=== PATIENT | female | born 1955 | race Caucasian/White ===

== ENCOUNTER 2017-03-08 09:55 | Inpatient (IN) | payer OTHER ==
[~2017-03-08] VITALS: Ht 160 cm; Wt 102.5 kg
[~2017-03-08 09:55] MED LIST: ALBU90OI INH; ALBU90OI6 INH; AMLO5 PO; ASPI325 PO; ASPI81CH PO; CAFERGOT; CALCAVITD PO; CARI350 PO; CEFD300 PO; CYCL10; CYCL10 PO; CYPR4 PO; DEPLIN PO; DEXA4 PO; DIAZ2 PO; ENABLEX; ENABLEX PO; ERGO50000 PO; ESCI10; ESCI20; ESTR1; ESTR1 PO; ESTR2 PO; FERR325 PO; FEXO180; FEXO180 PO; FEXPSEER PO; FLAV100; FLUO10 PO; FROV2.5; Flexeril 10 mg10 MG PO; GUAI600T33; HYDACE10B PO; HYDACE5 PO; HYDMOR2 PO; HYDMOR4 PO; INNOPRAN; INNOPRAN PO; INNOPRAN XL; L-LYSINE500 MG PO; LEVFLO500; LEVSOD100 PO; LEVSOD50 PO; LEVSOD75 PO; LOPE2C PO; MAXALT; MAXALT PO; MAXALT SL; META800 PO; METO10 PO; METPRE4DP PO; Monodox100 MG PO; NAPR500 PO; NARA2.5; OLAN10 PO; OMEP20ER; OMEP20ER PO; OMEP40CA12 PO; ONDA8 PO; OXYACE5T PO; OXYB5; OXYC5 PO; PHENERGAN25 MG RC; PRED20 PO; PROCODE120 PO; PROM12.5S PR; PROM25 PO; PROM25S; PROM25S PR; PROMETHEGAN; PROP120ER PO; PROP80ER; RIZA; RIZA PO; ROPI.25 PO; RXHYDMOR2 PO; SANCTURA; TRAACE; TRAM50 PO; TRIA55OI; TRIAOIA; VENL150ER PO; VENL75 PO; VENL75ER PO; VICODIN 5-3001 EACH PO
[2017-03-08 11:46] LABS: Hematocrit 33.1 % (33.0-51.0); Hemoglobin 11.2 g/dL (11.5-16.0); Mean Corpuscular HGB 29.9 pg (26.0-34.0); Mean Corpuscular HGB Conc 33.8 g/dL (31.5-36.5); Platelet Count 164 K/mm3 (150-400); RDW Coefficient Variation 13.9 % (11.7-14.2); RDW Standard Deviation 43.4 fL (35.1-46.3); Red Blood Cell Count 3.75 M/mm3 (3.80-5.20)
[2017-03-08 11:49] LABS: Mean Corpuscular Volume 88 fL (80-100)
[2017-03-08 11:51] LABS: Alanine Aminotransfer (ALT/SGP 40 U/L (12-78); Albumin, Blood 3.1 g/dL (3.4-5.0); Albumin/Globulin Ratio 0.9 (0.8-1.8); Alk Phos 69 U/L (50-136); Anion Gap 10 mmol/L (6-16); Aspartate Aminotrans (AST/SGOT 23 U/L (12-37); Blood Urea Nitrogen 18 mg/dL (8-24); CO2, Blood 27 mmol/L (21-32); Calcium, Blood 8.2 mg/dL (8.5-10.1); Chloride, Blood 100 mmol/L (98-108); Creatinine, Blood 0.95 mg/dL (0.40-1.00); Globulin, Blood 3.6 g/dL (2.2-4.0); Glomerular Filtration Rate >60 (60-); Glucose, Blood 105 mg/dL (70-99); Magnesium, Blood 1.3 mg/dL (1.6-2.4); Sodium, Blood 137 mmol/L (136-145); Total Protein, Blood 6.7 g/dL (6.4-8.2)
[2017-03-08 11:52] LABS: White Blood Cell Count 0.08 K/mm3 (4.00-11.30)
[2017-03-08] MEDS ORDERED: Prilosec Otc20 MG PO (12:27)
[2017-03-08] MEDS ORDERED: LOPE2C PO (12:28)
[2017-03-08] MEDS ORDERED: AMLO5 PO (12:28)
[2017-03-08] MEDS ORDERED: HYDMOR2 PO (12:32)
[2017-03-08 12:40] LABS: BASOPHILS PERCENT MAN 0 % (0-2); EOSINOPHILS PERCENT MAN 0 % (0-6); LYMPHOCYTES ABSOLUTE MAN 0.06 K/mm3 (0.84-5.20); LYMPHOCYTES PERCENT MAN 80 % (21-46); MONOCYTES ABSOLUTE MAN 0.01 K/mm3 (0.16-1.47); MONOCYTES PERCENT MAN 20 % (4-13); TOTAL CELLS COUNTED 10
[2017-03-09] MEDS ORDERED: LORA1 PO (00:42)
[2017-03-09 05:56] LABS: Hematocrit 43.6 % (33.0-51.0); Hemoglobin 14.4 g/dL (11.5-16.0); Mean Corpuscular HGB 29.9 pg (26.0-34.0); Mean Platelet Volume 10.3 fL (9.1-12.4); NRBC ABSOLUTE 0.25 K/mm3 (0.00-0.02); NRBC Auto 172.9 /100 WBC (0.0-0.2); Platelet Count 86 K/mm3 (150-400); RDW Coefficient Variation 14.2 % (11.7-14.2); RDW Standard Deviation 45.5 fL (35.1-46.3); Red Blood Cell Count 4.81 M/mm3 (3.80-5.20)
[2017-03-09 06:03] LABS: Mean Corpuscular Volume 91 fL (80-100)
[2017-03-09 06:05] LABS: White Blood Cell Count 0.15 K/mm3 (4.00-11.30)
[2017-03-09 06:14] LABS: Alanine Aminotransfer (ALT/SGP 41 U/L (12-78); Albumin, Blood 2.4 g/dL (3.4-5.0); Albumin/Globulin Ratio 0.8 (0.8-1.8); Alk Phos 68 U/L (50-136); Anion Gap 7 mmol/L (6-16); Aspartate Aminotrans (AST/SGOT 23 U/L (12-37); Bilirubin, Total 0.6 mg/dL (0.1-1.0); Blood Urea Nitrogen 11 mg/dL (8-24); Bun/Creatinine Ratio 11.1 (12.0-20.0); CO2, Blood 26 mmol/L (21-32); Calcium, Blood 7.3 mg/dL (8.5-10.1); Chloride, Blood 105 mmol/L (98-108); Creatinine, Blood 0.99 mg/dL (0.40-1.00); Glomerular Filtration Rate >60 (60-); Glucose, Blood 90 mg/dL (70-99); Potassium, Blood 3.4 mmol/L (3.5-5.5); Sodium, Blood 138 mmol/L (136-145); Total Protein, Blood 5.4 g/dL (6.4-8.2)
[2017-03-09 06:16] LABS: BASOPHILS PERCENT MAN 0 % (0-2); EOSINOPHILS PERCENT MAN 0 % (0-6); LYMPHOCYTES ABSOLUTE MAN 0.07 K/mm3 (0.84-5.20); LYMPHOCYTES PERCENT MAN 53 % (21-46); MONOCYTES ABSOLUTE MAN 0.06 K/mm3 (0.16-1.47); MONOCYTES PERCENT MAN 40 % (4-13); NEUTROPHILS ABSOLUTE MAN 0.01 K/mm3 (1.96-9.15); SEG NEUTROPHILS PERCENT MAN 7 % (41-73); TOTAL CELLS COUNTED 15
[2017-03-10 10:28] LABS: Hematocrit 28.5 % (33.0-51.0); Hemoglobin 9.4 g/dL (11.5-16.0); Mean Corpuscular HGB 29.9 pg (26.0-34.0); Mean Corpuscular Volume 91 fL (80-100); Mean Platelet Volume 9.5 fL (9.1-12.4); Platelet Count 121 K/mm3 (150-400); RDW Coefficient Variation 14.1 % (11.7-14.2); RDW Standard Deviation 45.2 fL (35.1-46.3); Red Blood Cell Count 3.14 M/mm3 (3.80-5.20)
[2017-03-10 10:39] LABS: White Blood Cell Count 0.93 K/mm3 (4.00-11.30)
[2017-03-10 10:50] LABS: Alanine Aminotransfer (ALT/SGP 33 U/L (12-78); Albumin, Blood 2.2 g/dL (3.4-5.0); Albumin/Globulin Ratio 0.7 (0.8-1.8); Alk Phos 65 U/L (50-136); Anion Gap 9 mmol/L (6-16); Aspartate Aminotrans (AST/SGOT 19 U/L (12-37); Bilirubin, Total 0.5 mg/dL (0.1-1.0); Blood Urea Nitrogen 7 mg/dL (8-24); Bun/Creatinine Ratio 7.9 (12.0-20.0); CO2, Blood 25 mmol/L (21-32); Calcium, Blood 7.7 mg/dL (8.5-10.1); Chloride, Blood 105 mmol/L (98-108); Creatinine, Blood 0.89 mg/dL (0.40-1.00); Glomerular Filtration Rate >60 (60-); Glucose, Blood 109 mg/dL (70-99); Potassium, Blood 3.2 mmol/L (3.5-5.5); Sodium, Blood 139 mmol/L (136-145); Total Protein, Blood 5.2 g/dL (6.4-8.2)
[2017-03-10 11:17] LABS: BAND PERCENT MAN 4 % (0-8); BASOPHILS ABSOLUTE MAN 0.01 K/mm3 (0.00-0.23); BASOPHILS PERCENT MAN 2 % (0-2); EOSINOPHILS PERCENT MAN 0 % (0-6); LYMPHOCYTES PERCENT MAN 44 % (21-46); METAMYELOCYTE ABSOLUTE MAN 0.03 K/mm3 (0.00-0.00); METAMYELOCYTE PERCENT MAN 4 % (0-0); MONOCYTES ABSOLUTE MAN 0.24 K/mm3 (0.16-1.47); MONOCYTES PERCENT MAN 26 % (4-13); MYELOCYTE ABSOLUTE MAN 0.01 K/mm3 (0.00-0.00); MYELOCYTE PERCENT MAN 2 % (0-0); SEG NEUTROPHILS PERCENT MAN 18 % (41-73); TOTAL CELLS COUNTED 50
[2017-03-11 05:44] LABS: Hematocrit 28.3 % (33.0-51.0); Hemoglobin 9.4 g/dL (11.5-16.0); Mean Corpuscular HGB 29.9 pg (26.0-34.0); Mean Corpuscular HGB Conc 33.2 g/dL (31.5-36.5); Mean Corpuscular Volume 90 fL (80-100); Mean Platelet Volume 9.6 fL (9.1-12.4); Platelet Count 126 K/mm3 (150-400); RDW Coefficient Variation 14.2 % (11.7-14.2); RDW Standard Deviation 45.4 fL (35.1-46.3); Red Blood Cell Count 3.14 M/mm3 (3.80-5.20); White Blood Cell Count 2.13 K/mm3 (4.00-11.30)
[2017-03-11 06:03] LABS: Alanine Aminotransfer (ALT/SGP 29 U/L (12-78); Albumin, Blood 2.4 g/dL (3.4-5.0); Albumin/Globulin Ratio 0.8 (0.8-1.8); Alk Phos 63 U/L (50-136); Anion Gap 8 mmol/L (6-16); Aspartate Aminotrans (AST/SGOT 14 U/L (12-37); Bilirubin, Total 0.5 mg/dL (0.1-1.0); Blood Urea Nitrogen 6 mg/dL (8-24); Bun/Creatinine Ratio 7.3 (12.0-20.0); CO2, Blood 29 mmol/L (21-32); Calcium, Blood 8.2 mg/dL (8.5-10.1); Chloride, Blood 102 mmol/L (98-108); Creatinine, Blood 0.82 mg/dL (0.40-1.00); Globulin, Blood 3.2 g/dL (2.2-4.0); Glomerular Filtration Rate >60 (60-); Glucose, Blood 97 mg/dL (70-99); Sodium, Blood 139 mmol/L (136-145); Total Protein, Blood 5.6 g/dL (6.4-8.2)
[2017-03-11 06:38] LABS: BAND PERCENT MAN 8 % (0-8); BASOPHILS PERCENT MAN 0 % (0-2); EOSINOPHILS ABSOLUTE MAN 0.02 K/mm3 (0.00-0.68); EOSINOPHILS PERCENT MAN 1 % (0-6); LYMPHOCYTES ABSOLUTE MAN 0.87 K/mm3 (0.84-5.20); LYMPHOCYTES PERCENT MAN 41 % (21-46); METAMYELOCYTE ABSOLUTE MAN 0.02 K/mm3 (0.00-0.00); METAMYELOCYTE PERCENT MAN 1 % (0-0); MONOCYTES PERCENT MAN 19 % (4-13); MYELOCYTE ABSOLUTE MAN 0.06 K/mm3 (0.00-0.00); MYELOCYTE PERCENT MAN 3 % (0-0); NEUTROPHILS ABSOLUTE MAN 0.74 K/mm3 (1.96-9.15); SEG NEUTROPHILS PERCENT MAN 27 % (41-73); TOTAL CELLS COUNTED 100
[2017-03-11] MEDS ORDERED: AMOX TR-K250 MG/5 M PO (12:41)
[2018-02-09] MEDS ORDERED: ANASTROZOLE5 GM (08:40)
[2018-02-09] MEDS ORDERED: Zantac150 MG PO (08:40)
[2018-02-09] MEDS ORDERED: DULO30 PO (08:40)
[2018-02-09] MEDS ORDERED: LISI20 PO (12:08)
[2018-02-09] MEDS ORDERED: L-LYSINE600 MG PO (12:09)
[2018-02-09] MEDS ORDERED: TURMERIC 500 M1 EACH PO (12:10)
[2018-02-09] MEDS ORDERED: NATURAL LUTEIN20 MG PO (12:10)
[2018-02-09] MEDS ORDERED: CHOL10002 PO (12:11)
[2018-02-09] MEDS ORDERED: CYAN500 PO (12:14)
[2018-02-09] MEDS ORDERED: Hair, Skin & N1 EACH PO (12:15)
[2018-02-09] MEDS ORDERED: MAGNESIUM250 MG PO (12:15)
== END 2017-03-11 13:14 | disposition home or self-care (01) | DRG 872 ==
LOC: ER 09:55 → MEDS 13:51 → ENPENDDIS 03-11 12:55 → MEDS 03-11 13:14
PROVIDERS: Internal Medicine; Physician Assistant
DX: A41.9 Sepsis, unspecified organism (principal); D69.59 Other secondary thrombocytopenia; C50.412 Malignant neoplasm of upper-outer quadrant of left female breast; E83.42 Hypomagnesemia; E86.0 Dehydration; E03.9 Hypothyroidism, unspecified; E87.6 Hypokalemia; K21.9 Gastro-esophageal reflux disease without esophagitis; F32.9 Major depressive disorder, single episode, unspecified; M79.7 Fibromyalgia; T45.1X5A Adverse effect of antineoplastic and immunosuppressive drugs, initial encounter; Z92.21 Personal history of antineoplastic chemotherapy; Z17.0 Estrogen receptor positive status [ER+]; Z88.1 Allergy status to other antibiotic agents; Z88.5 Allergy status to narcotic agent; Z88.8 Allergy status to other drugs, medicaments and biological substances; Z79.1 Long term (current) use of non-steroidal anti-inflammatories (NSAID); Z79.899 Other long term (current) drug therapy
CPT/HCPCS: 36415; 71046; 80053; 83605; 83690; 83735; 85025; 87015; 87040; 87045; 87046; 87205; 87493; 87899; 93005; 93010; 96361; 96365; 96367; 96368; 96375; 99285; C9113; J1642; J1644; J2001; J2405; J2543; J2550; J2765; J3370; J3475; J3480; J7030; J7050

== ENCOUNTER 2017-03-12 15:08 | Day surgery (SDC) | payer OTHER ==
[~2017-03-12 15:08] MED LIST changes: +AMOX TR-K250 MG/5 M PO; +LORA1 PO; +Prilosec Otc20 MG PO
[2017-03-12 16:17] LABS: Hematocrit 30.4 % (33.0-51.0); Hemoglobin 9.9 g/dL (11.5-16.0); Mean Corpuscular HGB 29.8 pg (26.0-34.0); Mean Corpuscular HGB Conc 32.6 g/dL (31.5-36.5); Mean Corpuscular Volume 92 fL (80-100); Platelet Count 133 K/mm3 (150-400); RDW Coefficient Variation 14.3 % (11.7-14.2); Red Blood Cell Count 3.32 M/mm3 (3.80-5.20); White Blood Cell Count 7.36 K/mm3 (4.00-11.30)
[2017-03-12 19:30] LABS: BASOPHILS PERCENT MAN 0 % (0-2); EOSINOPHILS PERCENT MAN 0 % (0-6); LYMPHOCYTES ABSOLUTE MAN 1.76 K/mm3 (0.84-5.20); LYMPHOCYTES PERCENT MAN 24 % (21-46); METAMYELOCYTE ABSOLUTE MAN 0.07 K/mm3 (0.00-0.00); METAMYELOCYTE PERCENT MAN 1 % (0-0); MONOCYTES ABSOLUTE MAN 1.03 K/mm3 (0.16-1.47); MONOCYTES PERCENT MAN 14 % (4-13); MYELOCYTE ABSOLUTE MAN 0.07 K/mm3 (0.00-0.00); MYELOCYTE PERCENT MAN 1 % (0-0); NEUTROPHILS ABSOLUTE MAN 4.41 K/mm3 (1.96-9.15); SEG NEUTROPHILS PERCENT MAN 60 % (41-73); TOTAL CELLS COUNTED 100
[2018-02-09] MEDS ORDERED: ANASTROZOLE5 GM (08:40)
[2018-02-09] MEDS ORDERED: DULO30 PO (08:40)
[2018-02-09] MEDS ORDERED: Zantac150 MG PO (08:40)
[2018-02-09] MEDS ORDERED: LISI20 PO (12:08)
[2018-02-09] MEDS ORDERED: L-LYSINE600 MG PO (12:09)
[2018-02-09] MEDS ORDERED: TURMERIC 500 M1 EACH PO (12:10)
[2018-02-09] MEDS ORDERED: NATURAL LUTEIN20 MG PO (12:10)
[2018-02-09] MEDS ORDERED: CHOL10002 PO (12:11)
[2018-02-09] MEDS ORDERED: CYAN500 PO (12:14)
[2018-02-09] MEDS ORDERED: Hair, Skin & N1 EACH PO (12:15)
[2018-02-09] MEDS ORDERED: MAGNESIUM250 MG PO (12:15)
== END 2017-03-12 15:45 | disposition home or self-care (01) ==
LOC: ATC 15:08
PROVIDERS: Nurse Practitioner Family
DX: C50.812 Malignant neoplasm of overlapping sites of left female breast (principal); Z17.0 Estrogen receptor positive status [ER+]
CPT/HCPCS: 36591; 85025; J1642

== ENCOUNTER 2017-03-16 10:14 | Day surgery (SDC) | payer OTHER ==
[2017-03-16 11:07] LABS: BASOPHILS ABSOLUTE AUTO 0.01 K/mm3 (0.00-0.23); BASOPHILS PERCENT AUTO 0 % (0-2); EOSINOPHILS PERCENT AUTO 0 % (0-6); Hematocrit 31.2 % (33.0-51.0); Hemoglobin 10.3 g/dL (11.5-16.0); IMMATURE GRAN ABSOLUTE AUTO 0.27 K/mm3 (0.00-0.10); IMMATURE GRAN PERCENT AUTO 5 % (0-1); LYMPHOCYTES ABSOLUTE AUTO 1.44 K/mm3 (0.84-5.20); LYMPHOCYTES PERCENT AUTO 25 % (21-46); MONOCYTES ABSOLUTE AUTO 0.58 K/mm3 (0.16-1.47); MONOCYTES PERCENT AUTO 10 % (4-13); Mean Corpuscular HGB 29.9 pg (26.0-34.0); Mean Corpuscular Volume 91 fL (80-100); Mean Platelet Volume 10.7 fL (9.1-12.4); NEUTROPHILS ABSOLUTE AUTO 3.49 K/mm3 (1.96-9.15); NEUTROPHILS PERCENT AUTO 60 % (41-73); RDW Coefficient Variation 14.1 % (11.7-14.2); RDW Standard Deviation 44.8 fL (35.1-46.3); Red Blood Cell Count 3.44 M/mm3 (3.80-5.20); White Blood Cell Count 5.79 K/mm3 (4.00-11.30)
[2017-03-16 11:10] LABS: Platelet Count 50 K/mm3 (150-400)
[2017-03-16 11:32] LABS: Alanine Aminotransfer (ALT/SGP 46 U/L (12-78); Albumin/Globulin Ratio 0.9 (0.8-1.8); Alk Phos 76 U/L (50-136); Anion Gap 10 mmol/L (6-16); Aspartate Aminotrans (AST/SGOT 33 U/L (12-37); Bilirubin, Total 0.3 mg/dL (0.1-1.0); Blood Urea Nitrogen 8 mg/dL (8-24); Bun/Creatinine Ratio 8.8 (12.0-20.0); CO2, Blood 28 mmol/L (21-32); Calcium, Blood 6.6 mg/dL (8.5-10.1); Chloride, Blood 102 mmol/L (98-108); Globulin, Blood 3.3 g/dL (2.2-4.0); Glomerular Filtration Rate >60 (60-); Glucose, Blood 101 mg/dL (70-99); Potassium, Blood 3.4 mmol/L (3.5-5.5); Sodium, Blood 140 mmol/L (136-145); Total Protein, Blood 6.3 g/dL (6.4-8.2)
[2018-02-09] MEDS ORDERED: Zantac150 MG PO (08:40)
[2018-02-09] MEDS ORDERED: DULO30 PO (08:40)
[2018-02-09] MEDS ORDERED: ANASTROZOLE5 GM (08:40)
[2018-02-09] MEDS ORDERED: LISI20 PO (12:08)
[2018-02-09] MEDS ORDERED: L-LYSINE600 MG PO (12:09)
[2018-02-09] MEDS ORDERED: NATURAL LUTEIN20 MG PO (12:10)
[2018-02-09] MEDS ORDERED: TURMERIC 500 M1 EACH PO (12:10)
[2018-02-09] MEDS ORDERED: CHOL10002 PO (12:11)
[2018-02-09] MEDS ORDERED: CYAN500 PO (12:14)
[2018-02-09] MEDS ORDERED: Hair, Skin & N1 EACH PO (12:15)
[2018-02-09] MEDS ORDERED: MAGNESIUM250 MG PO (12:15)
== END 2017-03-16 10:53 | disposition home or self-care (01) ==
LOC: ATC 10:14
PROVIDERS: Internal Medicine Hematology & Oncology
DX: C50.812 Malignant neoplasm of overlapping sites of left female breast (principal); Z17.0 Estrogen receptor positive status [ER+]; E03.9 Hypothyroidism, unspecified; F32.9 Major depressive disorder, single episode, unspecified; K21.9 Gastro-esophageal reflux disease without esophagitis
CPT/HCPCS: 80053; 85025; 96523; J1642

== ENCOUNTER 2017-03-19 11:47 | Day surgery (SDC) | payer OTHER ==
[2017-03-19 14:49] LABS: BASOPHILS ABSOLUTE AUTO 0.01 K/mm3 (0.00-0.23); BASOPHILS PERCENT AUTO 0 % (0-2); EOSINOPHILS PERCENT AUTO 0 % (0-6); Hematocrit 31.2 % (33.0-51.0); Hemoglobin 10.3 g/dL (11.5-16.0); IMMATURE GRAN ABSOLUTE AUTO 0.06 K/mm3 (0.00-0.10); IMMATURE GRAN PERCENT AUTO 1 % (0-1); LYMPHOCYTES PERCENT AUTO 26 % (21-46); MONOCYTES PERCENT AUTO 7 % (4-13); Mean Corpuscular HGB 29.9 pg (26.0-34.0); Mean Corpuscular Volume 90 fL (80-100); Mean Platelet Volume 10.4 fL (9.1-12.4); NEUTROPHILS ABSOLUTE AUTO 3.84 K/mm3 (1.96-9.15); NEUTROPHILS PERCENT AUTO 66 % (41-73); RDW Coefficient Variation 13.9 % (11.7-14.2); RDW Standard Deviation 44.5 fL (35.1-46.3); Red Blood Cell Count 3.45 M/mm3 (3.80-5.20); White Blood Cell Count 5.81 K/mm3 (4.00-11.30)
[2017-03-19 15:02] LABS: Alanine Aminotransfer (ALT/SGP 47 U/L (12-78); Albumin, Blood 3.1 g/dL (3.4-5.0); Albumin/Globulin Ratio 0.9 (0.8-1.8); Alk Phos 76 U/L (50-136); Anion Gap 11 mmol/L (6-16); Aspartate Aminotrans (AST/SGOT 37 U/L (12-37); Bilirubin, Total 0.6 mg/dL (0.1-1.0); Blood Urea Nitrogen 9 mg/dL (8-24); Bun/Creatinine Ratio 9.7 (12.0-20.0); CO2, Blood 28 mmol/L (21-32); Calcium, Blood 6.4 mg/dL (8.5-10.1); Chloride, Blood 102 mmol/L (98-108); Creatinine, Blood 0.93 mg/dL (0.40-1.00); Globulin, Blood 3.4 g/dL (2.2-4.0); Glomerular Filtration Rate >60 (60-); Glucose, Blood 89 mg/dL (70-99); Potassium, Blood 3.2 mmol/L (3.5-5.5); Sodium, Blood 141 mmol/L (136-145); Total Protein, Blood 6.5 g/dL (6.4-8.2)
[2017-03-19 15:32] LABS: Platelet Count 25 K/mm3 (150-400)
[2018-02-09] MEDS ORDERED: Zantac150 MG PO (08:40)
[2018-02-09] MEDS ORDERED: ANASTROZOLE5 GM (08:40)
[2018-02-09] MEDS ORDERED: DULO30 PO (08:40)
[2018-02-09] MEDS ORDERED: LISI20 PO (12:08)
[2018-02-09] MEDS ORDERED: L-LYSINE600 MG PO (12:09)
[2018-02-09] MEDS ORDERED: NATURAL LUTEIN20 MG PO (12:10)
[2018-02-09] MEDS ORDERED: TURMERIC 500 M1 EACH PO (12:10)
[2018-02-09] MEDS ORDERED: CHOL10002 PO (12:11)
[2018-02-09] MEDS ORDERED: CYAN500 PO (12:14)
[2018-02-09] MEDS ORDERED: Hair, Skin & N1 EACH PO (12:15)
[2018-02-09] MEDS ORDERED: MAGNESIUM250 MG PO (12:15)
== END 2017-03-19 15:32 | disposition home or self-care (01) ==
LOC: ATC 11:47
PROVIDERS: Internal Medicine Hematology & Oncology
DX: C50.812 Malignant neoplasm of overlapping sites of left female breast (principal); R11.2 Nausea with vomiting, unspecified; Z95.828 Presence of other vascular implants and grafts
CPT/HCPCS: 80053; 85025; 96361; 96374; J1642; J2405; J7030

== ENCOUNTER → 2017-03-23 | Outpatient (CLI) | payer OTHER ==
[~2017-03-23] MED LIST changes: +ANASTROZOLE5 GM; +CHOL10002 PO; +CYAN500 PO; +DULO30 PO; +Hair, Skin & N1 EACH PO; +L-LYSINE600 MG PO; +LISI20 PO; +MAGNESIUM250 MG PO; +NATURAL LUTEIN20 MG PO; +TURMERIC 500 M1 EACH PO; +Zantac150 MG PO
[2017-03-23 15:03] LABS: BASOPHILS PERCENT AUTO 0 % (0-2); EOSINOPHILS PERCENT AUTO 0 % (0-6); Hematocrit 29.8 % (33.0-51.0); Hemoglobin 9.9 g/dL (11.5-16.0); IMMATURE GRAN ABSOLUTE AUTO 0.02 K/mm3 (0.00-0.10); IMMATURE GRAN PERCENT AUTO 0 % (0-1); LYMPHOCYTES ABSOLUTE AUTO 1.52 K/mm3 (0.84-5.20); LYMPHOCYTES PERCENT AUTO 29 % (21-46); MONOCYTES ABSOLUTE AUTO 0.55 K/mm3 (0.16-1.47); MONOCYTES PERCENT AUTO 11 % (4-13); Mean Corpuscular HGB 30.2 pg (26.0-34.0); Mean Corpuscular HGB Conc 33.2 g/dL (31.5-36.5); Mean Corpuscular Volume 91 fL (80-100); Mean Platelet Volume 11.7 fL (9.1-12.4); NEUTROPHILS ABSOLUTE AUTO 3.16 K/mm3 (1.96-9.15); NEUTROPHILS PERCENT AUTO 60 % (41-73); RDW Coefficient Variation 14.9 % (11.7-14.2); RDW Standard Deviation 45.2 fL (35.1-46.3); Red Blood Cell Count 3.28 M/mm3 (3.80-5.20); White Blood Cell Count 5.25 K/mm3 (4.00-11.30)
[2017-03-23 15:07] LABS: Platelet Count 38 K/mm3 (150-400)
[2017-03-23 15:13] LABS: Alanine Aminotransfer (ALT/SGP 38 U/L (12-78); Albumin, Blood 3.2 g/dL (3.4-5.0); Alk Phos 72 U/L (50-136); Anion Gap 9 mmol/L (6-16); Aspartate Aminotrans (AST/SGOT 25 U/L (12-37); Bilirubin, Total 0.4 mg/dL (0.1-1.0); Blood Urea Nitrogen 7 mg/dL (8-24); Bun/Creatinine Ratio 7.3 (12.0-20.0); CO2, Blood 30 mmol/L (21-32); Calcium, Blood 6.4 mg/dL (8.5-10.1); Chloride, Blood 100 mmol/L (98-108); Creatinine, Blood 0.95 mg/dL (0.40-1.00); Globulin, Blood 3.1 g/dL (2.2-4.0); Glomerular Filtration Rate >60 (60-); Glucose, Blood 93 mg/dL (70-99); Potassium, Blood 3.2 mmol/L (3.5-5.5); Sodium, Blood 139 mmol/L (136-145); Total Protein, Blood 6.3 g/dL (6.4-8.2)
== END ==
LOC: LAB SHORT 14:33
PROVIDERS: Internal Medicine Hematology & Oncology
DX: C50.812 Malignant neoplasm of overlapping sites of left female breast (principal)
CPT/HCPCS: 80053; 85025

== ENCOUNTER → 2017-03-29 | Outpatient (CLI) | payer OTHER ==
[2017-03-29 14:56] LABS: Anion Gap 7 mmol/L (6-16); Blood Urea Nitrogen 5 mg/dL (8-24); Bun/Creatinine Ratio 6.1 (12.0-20.0); CO2, Blood 32 mmol/L (21-32); Calcium, Blood 6.2 mg/dL (8.5-10.1); Chloride, Blood 103 mmol/L (98-108); Creatinine, Blood 0.83 mg/dL (0.40-1.00); Glomerular Filtration Rate >60 (60-); Glucose, Blood 104 mg/dL (70-99); Potassium, Blood 2.9 mmol/L (3.5-5.5); Sodium, Blood 142 mmol/L (136-145)
== END ==
LOC: LAB 14:07
PROVIDERS: Internal Medicine Hematology & Oncology
DX: C50.812 Malignant neoplasm of overlapping sites of left female breast (principal)
CPT/HCPCS: 80048

== ENCOUNTER → 2017-10-27 | Outpatient (CLI) | payer OTHER ==
[~2017-10-27] MED LIST changes: -ANASTROZOLE5 GM; -CHOL10002 PO; -CYAN500 PO; -DULO30 PO; -Hair, Skin & N1 EACH PO; -L-LYSINE600 MG PO; -LISI20 PO; -MAGNESIUM250 MG PO; -NATURAL LUTEIN20 MG PO; -TURMERIC 500 M1 EACH PO; -Zantac150 MG PO
== END ==
LOC: LAB SHORT 19:02 → LAB 19:02
PROVIDERS: Nurse Practitioner Family
DX: Z01.419 Encounter for gynecological examination (general) (routine) without abnormal findings (principal)
CPT/HCPCS: G0145

== ENCOUNTER 2018-07-25 07:40 | Emergency (ER) | payer MEDICARE, OTHER ==
[~2018-07-25] VITALS: Ht 160 cm; Wt 99.8 kg
[~2018-07-25 07:40] MED LIST changes: +ANASTROZOLE5 GM; +CHOL10002 PO; +CYAN500 PO; +DULO30 PO; +Hair, Skin & N1 EACH PO; +L-LYSINE600 MG PO; +LISI20 PO; +MAGNESIUM250 MG PO; +NATURAL LUTEIN20 MG PO; +TURMERIC 500 M1 EACH PO; +Zantac150 MG PO
[2018-07-25] MEDS ORDERED: PRED10 PO (08:14)
[2018-07-25] MEDS ORDERED: Voltaren100 GM TOP (08:14)
[2018-07-25] MEDS ORDERED: HYDR1TAB94 PO (08:14)
== END 2018-07-25 08:34 | disposition home or self-care (01) ==
LOC: ER 07:40
DX: M77.11 Lateral epicondylitis, right elbow (principal); M77.9 Enthesopathy, unspecified; Z88.5 Allergy status to narcotic agent; Z88.8 Allergy status to other drugs, medicaments and biological substances; Z88.1 Allergy status to other antibiotic agents; Z79.899 Other long term (current) drug therapy; Z79.52 Long term (current) use of systemic steroids; Z85.3 Personal history of malignant neoplasm of breast
CPT/HCPCS: 99283

== ENCOUNTER → 2019-02-28 | Outpatient (CLI) | payer MEDICARE, OTHER ==
[~2019-02-28] MED LIST changes: +HYDR1TAB94 PO; +PRED10 PO; +Voltaren100 GM TOP
[2019-02-28 18:08] LABS: Campylobacter Sp Not Detected (NOT DETECT)
[2019-02-28 18:09] LABS: Adenovirus F 40/41 Not Detected (NOT DETECT); Astrovirus Not Detected (NOT DETECT); Cryptosporidium Not Detected (NOT DETECT); Cyclospora Cayetanensis Not Detected (NOT DETECT); E. Coli O157 Not Detected (NOT DETECT); Entamoeba Histolytica Not Detected (NOT DETECT); Enteroaggregative E. coli-EAEC Not Detected (NOT DETECT); Enteropathogenic E. coli-EPEC Not Detected (NOT DETECT); Enterotoxigenic E. coli-ETEC Not Detected (NOT DETECT); Giardia Lamblia Not Detected (NOT DETECT); Norovirus GI/GII Not Detected (NOT DETECT); Plesiomonas Shigelloides Not Detected (NOT DETECT); Rotavirus A Not Detected (NOT DETECT); Salmonella Sp Not Detected (NOT DETECT); Sapovirus Not Detected (NOT DETECT); Shiga Toxin-prod E. coli-STEC Not Detected (NOT DETECT); Shigella/Enteroin E. coli-EIEC Not Detected (NOT DETECT); Vibrio Cholerae Not Detected (NOT DETECT); Vibrio Sp Not Detected (NOT DETECT); Yersinia Enterocolitica Not Detected (NOT DETECT)
== END ==
LOC: LAB EV 02-27 10:30
PROVIDERS: Nurse Practitioner Family
DX: A06.1 Chronic intestinal amebiasis (principal)
CPT/HCPCS: 0097U

== ENCOUNTER → 2022-06-18 | Outpatient (CLI) | payer OTHER | END | disposition home or self-care (01) | LOC: LAB 09:30 → LAB SHORT 09:30 | DX: K21.00 Gastro-esophageal reflux disease with esophagitis, without bleeding (principal); K58.0 Irritable bowel syndrome with diarrhea; R42 Dizziness and giddiness | CPT/HCPCS: 83993 ==

== ENCOUNTER 2023-02-02 11:38 | Emergency (ER) | payer OTHER ==
[~2023-02-02] VITALS: Ht 160 cm; Wt 108.0 kg
[2023-02-02] MEDS ORDERED: LOSA25 PO (11:57)
[2023-02-02] MEDS ORDERED: CATAPRES0.1 MG PO (11:57)
[2023-02-02 13:26] LABS: BASOPHILS ABSOLUTE AUTO 0.02 K/mm3 (0.00-0.23); BASOPHILS PERCENT AUTO 0 % (0-2); EOSINOPHILS ABSOLUTE AUTO 0.04 K/mm3 (0.00-0.68); EOSINOPHILS PERCENT AUTO 1 % (0-6); Hematocrit 42.8 % (33.0-51.0); Hemoglobin 13.9 g/dL (11.5-16.0); IMMATURE GRAN ABSOLUTE AUTO 0.02 K/mm3 (0.00-0.10); IMMATURE GRAN PERCENT AUTO 0 % (0-1); LYMPHOCYTES ABSOLUTE AUTO 1.68 K/mm3 (0.84-5.20); LYMPHOCYTES PERCENT AUTO 26 % (21-46); MONOCYTES ABSOLUTE AUTO 0.56 K/mm3 (0.16-1.47); MONOCYTES PERCENT AUTO 9 % (4-13); Mean Corpuscular HGB Conc 32.5 g/dL (31.5-36.5); Mean Corpuscular Volume 96 fL (80-100); Mean Platelet Volume 9.1 fL (9.1-12.4); NEUTROPHILS ABSOLUTE AUTO 4.14 K/mm3 (1.96-9.15); NEUTROPHILS PERCENT AUTO 64 % (41-73); Platelet Count 272 K/mm3 (150-400); RDW Standard Deviation 45.4 fL (35.1-46.3); Red Blood Cell Count 4.48 M/mm3 (3.80-5.20); White Blood Cell Count 6.46 K/mm3 (4.00-11.30)
[2023-02-02 13:36] LABS: Albumin, Blood 3.3 g/dL (3.4-5.0); Albumin/Globulin Ratio 1.1 (0.8-1.8); Bilirubin, Total 0.3 mg/dL (0.1-1.0); Bun/Creatinine Ratio 29.8 (12.0-20.0); Creatinine, Blood 0.7 mg/dL (0.40-1.00); Globulin, Blood 3.1 g/dL (2.2-4.0); Potassium, Blood 4.3 mmol/L (3.5-5.5); Total Protein, Blood 6.4 g/dL (6.4-8.2)
[2023-02-02 17:00] VITALS: BP 179/71
== END 2023-02-02 17:36 | disposition home or self-care (01) ==
LOC: ER 11:38
PROVIDERS: Student in an Organized Health Care Education/Training Program
DX: R07.89 Other chest pain (principal); T85.49XA Other mechanical complication of breast prosthesis and implant, initial encounter; E03.9 Hypothyroidism, unspecified; Z88.5 Allergy status to narcotic agent; Z88.6 Allergy status to analgesic agent; Z88.1 Allergy status to other antibiotic agents; Z88.0 Allergy status to penicillin; Z79.899 Other long term (current) drug therapy
CPT/HCPCS: 71045; 71275; 80053; 83690; 83880; 84484; 85025; 85379; 93005; 93010; 96374; 96375; 99285-25; A9270; J1170; J1642; J1885; Q9967